=== PATIENT | male | born 1935 | race Caucasian/White ===

== ENCOUNTER → 2016-06-07 | Day surgery (SDC) | payer MEDICARE, BC ==
[~2016-06-07] MED LIST: ADVI200C5 PO; ARMO90TA PO; ASPI1TAB69 PO; BUFF325T PO; BUPIVACAINE HCL PF 0.75% 30 ML VIAL ONE; ENAL20TA PO; LIVA1TAB PO; MECL-62 PO; META48.53 PO; METF500T PO; METO25TA3 PO; PROPOFOL 200 MG/20 ML AMP IV ONE; TRAM50TA PO; TRIAMCINOLONE ACETONIDE 40 MG/ML VIAL I-ARTICULR ONE; VITA1000 PO; VITA10007 PO; ZOLP10TA3 PO
--- NOTE | 2016-06-07 10:21 | M6 ---
cc: ELVIS HERNANDEZ M.D. DATE 06/07/2016 DATE OF 1935 PROCEDURE Fluoroscopically guided injection bilateral lumbar facet joints (bilateral L3-4, L4-5 and L5-S1 facet joints. PROCEDURE NOTE History and physical was completed and signed. Consent was signed. Procedure site was marked. Medications were listed and reconciled. Pain score was recorded. Allergies were noted. Time out was taken. Fluoroscopy time was recorded where applicable. Sedation was administered or directed by Dr. Hernandez. The patient was given oxygen. The patient was monitored by a registered nurse. Total procedure time was greater than 15 minutes. IV was started, blood pressure cuff, pulse oximeter and EKG were applied. The patient was placed in the prone position on a Manish table, sedated with small amounts of propofol titrated to effect. Vital signs were monitored and remained stable throughout the procedure. The lumbar area was prepped with alcohol and 10% Betadine solution and draped with sterile drapes. Fluoroscopy was used in a Juan R dog view to clearly visualize the bilateral lumbar facet joints at L3-4, L4-5 and L5-S1. Separate sterile 3-1/2-inch, 25-gauge spinal needles were advanced into these joints under fluoroscopic guidance. There was negative aspiration for blood or any other type of fluid and the patient was given 1 mL of Marcaine 0.75% with 10 mg of Kenalog at each location. Following this, the patient was taken to the recovery room with stable vital signs neurologically intact. WMD JEROMY Camilo/RYLIE /10:04 AM /10:17 AM
== END | disposition home or self-care (01) ==
LOC: PHSDC 08:20
PROVIDERS: ATTEND Pain Medicine Interventional Pain Medicine
DX: M54.5 Low back pain (principal)
CPT/HCPCS: 64493; 64494; 64495; 99152; J3301

== ENCOUNTER → 2016-10-08 | Day surgery (SDC) | payer MEDICARE, BC ==
[~2016-10-08] MED LIST changes: +BUPIVACAINE HCL PF 0.5% 30 ML VIAL ONE; -LIVA1TAB PO
--- NOTE | 2016-10-11 12:29 | M6 ---
cc: ELVIS HERNANDEZ M.D. DATE 10/08/2016 DATE OF 1935 PROCEDURE Fluoroscopically guided injection bilateral lumbar facet joints (bilateral L3-4, L4-5 and L5-S1 facet joints). PROCEDURE NOTE History and physical was completed and signed. Consent was signed. Procedure site was marked. Medications were listed and reconciled. Pain score was recorded. Allergies were noted. Time out was taken. Fluoroscopy time was recorded where applicable. Sedation was administered or directed by Dr. Hernandez. The patient was given oxygen. The patient was monitored by a registered nurse. Total procedure time was greater than 15 minutes. IV was started, blood pressure cuff, pulse oximeter and EKG were applied. The patient was placed in the prone position on a Manish table, sedated with small amounts of propofol titrated to effect. Vital signs were monitored and remained stable throughout the procedure. The lumbar area was prepped with alcohol and 10% Betadine solution, draped with sterile drapes. Fluoroscopy was used in a Juan R dog view to clearly visualize the bilateral lumbar facet joints at L3-4, L4-5 and L5-S1. Separate sterile 3-1/2-inch, 25-gauge needles were advanced into these joints under fluoroscopic guidance. There was negative aspiration for blood or any other type of fluid and at each location, the patient was given 1 mL of 0.75% Marcaine and 10 mg of Kenalog. Following the procedure, the patient was taken to the recovery room with stable vital signs neurologically intact. He will be evaluated immediately and with followup to determine if he has a subjective decrease in his usual pain and a corresponding objective increase in his functional capabilities. W. MD JEROMY Esquivel/RYLIE /9:41 AM /12:22 PM
== END | disposition home or self-care (01) ==
LOC: PHSDC 07:53
PROVIDERS: ATTEND Pain Medicine Interventional Pain Medicine
DX: M54.5 Low back pain (principal); E11.9 Type 2 diabetes mellitus without complications; Z79.84 Long term (current) use of oral hypoglycemic drugs
CPT/HCPCS: 64493; 64494; 64495; 99152; J3301

== ENCOUNTER → 2016-12-24 | Day surgery (SDC) | payer MEDICARE, BC ==
[~2016-12-24] MED LIST changes: -ADVI200C5 PO; +ASCO500T PO; +ASPI-110 PO; +ASPI-383 PO; -ASPI1TAB69 PO; -BUFF325T PO; -BUPIVACAINE HCL PF 0.5% 30 ML VIAL ONE; -BUPIVACAINE HCL PF 0.75% 30 ML VIAL ONE; +FISH1000 PO; +GABA100C4 PO; +LIDOCAINE HCL 1% 30 ML VIAL INFIL ONE; +MEPERIDINE HCL 25 MG/ML VIAL IV ONE; +MIDAZOLAM HCL 2 MG/2 ML VIAL IV ONE; +ROSU5 PO; +SODIUM CHLORIDE 0.9% 10 ML VIAL ONE; -TRIAMCINOLONE ACETONIDE 40 MG/ML VIAL I-ARTICULR ONE; -VITA10007 PO; +methylPREDNISolone ACETATE 40 MG/ML VIAL I-ARTICULR ONE
--- NOTE | 2016-12-28 17:41 | M6 ---
cc: ELVIS HERNANDEZ M.D. DATE: 12/24/2016 DATE OF : 1935 PROCEDURE Fluoroscopically guided radiofrequency ablation bilateral lumbar facet joints (bilateral L3-4, L4-5 and L5-S1 facet joints. History and physical was completed and signed. Consent was signed. Procedure site was marked. Medications were listed and reconciled. Pain score was recorded. Allergies were noted. Time out was taken. Fluoroscopy time was recorded where applicable. Sedation was administered or directed by Dr. Hernandez. The patient was given oxygen. The patient was monitored by a registered nurse. Total procedure time was greater than 15 minutes. Radiofrequency rhizotomy multiple bilateral L3-L4, L4-L5 and L5-S1 lumbar facet joints. Three levels are being done because imaging studies show arthritis in all lumbar facet joints and because each facet joint is innervated by the medial branches from the nerves above and below that particular joint. The patient reported 50% or greater pain relief from previous diagnostic facet joint blocks done with fluoroscopic guidance. PROCEDURE: An IV was started, blood pressure cuff, pulse oximeter and EKG were applied. The patient was placed in the prone position on a Manish table, sedated with small amounts of Versed and fentanyl and propofol titrated to effect. Vital signs were monitored and remained stable throughout the procedure. The lumbar area was scrubbed with antimicrobial solution, prepped with 10% Betadine solution, draped with sterile drapes. Fluoroscopy was used in a slightly oblique angle (Juan R dog view) to clearly visualize the target areas which were the cephalad most medial angle of the transverse processes as they met the pedicle in the anatomical location of the medial branch of the posterior primary ramus on the bilateral at L3-L4, L4-L5 and L5-S1 levels and the angle of the sacral ala. The skin was infiltrated with 1% Xylocaine using a 27 gauge needle. An insulated 20 gauge radiofrequency needle with a 10 mm curved tip was advanced to the above-mentioned target areas. Fluoroscopy was used to confirm the needle was properly placed and not near the nerve root. At no time did the patient report any paresthesias down the lower extremity. Once properly positioned thermal lesions took place at 80 degrees Centigrade x 100 seconds at each location. Then, a small amount of Depo-Medrol was injected at each location for a total of 40 mg of Depo-Medrol. Following this the patient was taken to the recovery room with stable vital signs, neurologically intact. W. MD JEROMY Esquivel/maria de jesus /8:42 AM /5:30 PM
== END | disposition home or self-care (01) ==
LOC: PHSDC 06:39
PROVIDERS: ATTEND Pain Medicine Interventional Pain Medicine
DX: M54.5 Low back pain (principal); I11.0 Hypertensive heart disease with heart failure; I50.9 Heart failure, unspecified; E11.40 Type 2 diabetes mellitus with diabetic neuropathy, unspecified; Z86.73 Personal history of transient ischemic attack (TIA), and cerebral infarction without residual deficits; Z85.828 Personal history of other malignant neoplasm of skin; Z95.0 Presence of cardiac pacemaker; Z79.02 Long term (current) use of antithrombotics/antiplatelets; Z79.84 Long term (current) use of oral hypoglycemic drugs
CPT/HCPCS: 64635; 64636; 99152; 99153; J1030; J2175; J2250

== ENCOUNTER → 2017-08-15 | Day surgery (SDC) | payer MEDICARE, BC ==
[~2017-08-15] MED LIST changes: +ALLO300T2 PO; -ASPI-110 PO; +ASPI1TAB57 PO; +BUPIVACAINE HCL PF 0.75% 30 ML VIAL ONE; -LIDOCAINE HCL 1% 30 ML VIAL INFIL ONE; -MEPERIDINE HCL 25 MG/ML VIAL IV ONE; +METF-381 PO; -MIDAZOLAM HCL 2 MG/2 ML VIAL IV ONE; +PLAV75TA29 PO; -SODIUM CHLORIDE 0.9% 10 ML VIAL ONE; -TRAM50TA PO; +TRIAMCINOLONE ACETONIDE 40 MG/ML VIAL I-ARTICULR ONE; -methylPREDNISolone ACETATE 40 MG/ML VIAL I-ARTICULR ONE
--- NOTE | 2017-08-15 09:53 | M6 ---
cc: Mary Jane Hernandez MD 08/15/2017 PROCEDURE: Fluoroscopically guided injection bilateral lumbar facet joints (bilateral L3-4, L4-5 and L5-S1 facet joints). History and physical was completed and signed. Consent was signed. Procedure site was marked. Medications were listed and reconciled. Pain score was recorded. Allergies were noted. Time out was taken. Fluoroscopy time was recorded where applicable. Sedation was administered or directed by Dr. Hernandez. The patient was given oxygen. The patient was monitored by a registered nurse. Total procedure time was greater than 15 minutes. IV was started, blood pressure cuff, pulse oximeter and EKG were applied. The patient was placed in the prone position on a Manish table, sedated with small amounts of propofol titrated to effect. Vital signs were monitored and remained stable throughout the procedure. The lumbar area was prepped with alcohol and 10% Betadine solution, draped with sterile drapes. Fluoroscopy was used in a niarj dog view to clearly visualize the bilateral lumbar facet joints at L3-4, L4-5 and L5-S1. Separate sterile 3-1/2 inch 25 gauge spinal needles were advanced into these joints under fluoroscopic guidance. There was negative aspiration for blood or any other type of fluid and at each location, the patient was given 1 mL of Marcaine 0.75% and 10 mg of Kenalog. Following the procedure, the patient was taken to the recovery room with stable vital signs neurologically intact. Mary Jane Hernandez MD WR[facility]/DL , 09:23 AM , 09:53 AM
== END | disposition home or self-care (01) ==
LOC: PHSDC 07:47
PROVIDERS: ATTEND Pain Medicine Interventional Pain Medicine
DX: M54.5 Low back pain (principal)
CPT/HCPCS: 64493; 64494; 64495; 99152; J3301